=== PATIENT | female | born 1980 | race Caucasian/White ===

== ENCOUNTER 2020-03-28 21:41 | Emergency (ER) | payer MEDICARE, MEDICAID ==
[~2020-03-28] VITALS: Ht 160 cm; Wt 62.0 kg
[2020-03-28 23:15] LABS: BASOPHILS % 0.2 % (0.0-2.0); EOSINOPHILS % 0.7 % (0.0-5.0); HEMATOCRIT. 35.5 % (36.0-48.0); HEMOGLOBIN. 11.4 g/dL (12.0-16.0); LYMPHOCYTES % 7.9 % (20.0-50.0); MEAN CORPUSCULAR HEMOGLOBIN 25.8 pg (28.0-32.0); MEAN CORPUSCULAR VOLUME 80.4 fL (81.0-99.0); MONOCYTES % 6.7 % (2.0-8.0); NEUTROPHILS % 84.5 % (40.0-76.0); PLATELET 303 x1000/uL (130-400); RED BLOOD CELL COUNT 4.41 mill/uL (4.2-5.4); RED CELL DISTRIBUTION WIDTH 16.7 % (11.6-14.6)
[2020-03-28 23:20] LABS: CHLORIDE 107 mEq/L (98-107)
[2020-03-29] MEDS ORDERED: LORAZEPAM 0.5MG TABLET PO ONE
[2020-03-29 00:49] VITALS: BP 138/100
[2020-03-31] MEDS ORDERED: OXYM-15 NS (02:22)
[2020-03-31] MEDS ORDERED: METO-539 MT (02:28)
[2020-03-31] MEDS ORDERED: CLON-457 MT (02:28)
[2020-03-31] MEDS ORDERED: ALBU6.7H9 INH (02:28)
[2020-03-31] MEDS ORDERED: ASPI-1497 MT (02:28)
[2020-03-31] MEDS ORDERED: LOSA100T32 MT (02:28)
[2020-03-31] MEDS ORDERED: BACL20TA MT (02:28)
== END 2020-03-29 00:53 | disposition home or self-care (01) ==
LOC: ER 21:41
DX: N30.00 Acute cystitis without hematuria (principal); I10 Essential (primary) hypertension; B91 Sequelae of poliomyelitis; J45.909 Unspecified asthma, uncomplicated
CPT/HCPCS: 36415; 71045; 80053; 83605; 85025; 93005; 99285

== ENCOUNTER 2020-04-05 16:43 | Emergency (ER) | payer MEDICARE, MEDICAID ==
[~2020-04-05] VITALS: Ht 162.6 cm; Wt 68.0 kg
[~2020-04-05 16:43] MED LIST: ALBU6.7H9 INH; ASPI-1497 MT; BACL20TA MT; CLON-457 MT; LOSA100T32 MT; METO-539 MT; OXYM-15 NS
[2020-04-05] MEDS ORDERED: ONDANSETRON HCL 4MG/2ML INJ IV STA (17:28)
[2020-04-05] MEDS ORDERED: SODIUM CHLORIDE 0.9% 1,000 ML IV ONE (17:28)
[2020-04-05] MEDS ORDERED: MECLIZINE 25MG TABLET PO ONE (17:30)
[2020-04-05 17:31] LABS: BASOPHILS % 0.7 % (0.0-2.0); EOSINOPHILS % 6.3 % (0.0-5.0); HEMATOCRIT. 34.6 % (36.0-48.0); HEMOGLOBIN. 11.1 g/dL (12.0-16.0); LYMPHOCYTES % 20.9 % (20.0-50.0); MEAN CORPUSCULAR HEMOGLOBIN 25.9 pg (28.0-32.0); MEAN CORPUSCULAR VOLUME 80.8 fL (81.0-99.0); MEAN PLATELET VOLUME 8.9 fl (7.4-10.4); MONOCYTES % 9.6 % (2.0-8.0); NEUTROPHILS % 62.5 % (40.0-76.0); PLATELET 305 x1000/uL (130-400); RED BLOOD CELL COUNT 4.28 mill/uL (4.2-5.4); RED CELL DISTRIBUTION WIDTH 17.1 % (11.6-14.6)
[2020-04-05 17:34] LABS: INR 1.2; PROTHROMBIN TIME 12.7 sec (9.6-11.0)
[2020-04-05 17:35] LABS: CHLORIDE 106 mEq/L (98-107)
[2020-04-05 18:41] VITALS: BP 162/99
== END 2020-04-05 20:20 | disposition home or self-care (01) ==
LOC: ER 16:43
DX: R42 Dizziness and giddiness (principal); J45.909 Unspecified asthma, uncomplicated; I10 Essential (primary) hypertension; Z79.899 Other long term (current) drug therapy
CPT/HCPCS: 36415; 80053; 85025; 85610; 93005; 96361; 96374; 99284; J2405; J7030; J8597

== ENCOUNTER 2020-08-14 14:10 | Emergency (ER) | payer OTHER, MEDICAID ==
[~2020-08-14] VITALS: Ht 152.4 cm; Wt 62.0 kg
[2020-08-14] MEDS: TRAMADOL 50MG TABLET PO ONE (14:49)
[2020-08-14 18:11] VITALS: BP 119/77
== END 2020-08-14 18:34 | disposition home or self-care (01) ==
LOC: ER 14:40
DX: S09.8XXA Other specified injuries of head, initial encounter (principal); W05.0XXA Fall from non-moving wheelchair, initial encounter; Y93.89 Activity, other specified; Y92.89 Other specified places as the place of occurrence of the external cause; Y99.8 Other external cause status; J45.909 Unspecified asthma, uncomplicated; I10 Essential (primary) hypertension; Z79.899 Other long term (current) drug therapy
CPT/HCPCS: 99284

== ENCOUNTER 2022-05-25 18:07 | Inpatient (IN) | payer MEDICARE, MEDICAID ==
[~2022-05-25] VITALS: Ht 152.4 cm; Wt 61.7 kg
[2022-05-26 04:06] LABS: CHLORIDE 108 mEq/L (98-107)
[2022-05-26 04:08] LABS: HCG SCREEN NEGATIVE
[2022-05-26 05:04] LABS: BASOPHILS % 1.3 % (0.0-2.0); EOSINOPHILS % 4.9 % (0.0-5.0); HEMATOCRIT. 22.7 % (36.0-48.0); LYMPHOCYTES % 43.4 % (20.0-50.0); MEAN CORPUSCULAR HEMOGLOBIN 18.4 pg (28.0-32.0); MEAN PLATELET VOLUME 7.7 fl (7.4-10.4); MONOCYTES % 6.8 % (2.0-8.0); NEUTROPHILS % 43.6 % (40.0-76.0); PLATELET 651 x1000/uL (130-400); RED BLOOD CELL COUNT 3.49 mill/uL (4.2-5.4); RED CELL DISTRIBUTION WIDTH 18.3 % (11.6-14.6)
[2022-05-26 05:14] LABS: HEMOGLOBIN. 6.4 g/dL (12.0-16.0)
[2022-05-26 05:17] LABS: PLATELET ESTIMATE INCREASED
[2022-05-26 12:00] VITALS: BP 144/95
[2022-05-26 16:00] VITALS: BP 136/73
[2022-05-26] MEDS ORDERED: ONDANSETRON HCL 4MG/2ML INJ IV PRN (16:45)
[2022-05-26] MEDS ORDERED: ACETAMINOPHEN 325MG TABLET PO PRN (16:45)
[2022-05-26 18:46] VITALS: BP 144/95
[2022-05-26 20:00] VITALS: BP 129/89
[2022-05-26 20:18] LABS: HEMATOCRIT 33.1 % (36.0-48.0); HEMOGLOBIN 10.2 g/dL (12.0-16.0)
[2022-05-26 20:22] LABS: TOTAL IRON BINDING CAPACITY 549 ug/dL (250-450)
[2022-05-27] VITALS (7 sets, daily range): BP systolic 137–145; BP diastolic 88–104
[2022-05-27 08:05] LABS: BASOPHILS % 1.1 % (0.0-2.0); EOSINOPHILS % 1.8 % (0.0-5.0); HEMATOCRIT. 32.6 % (36.0-48.0); HEMOGLOBIN. 10.4 g/dL (12.0-16.0); LYMPHOCYTES % 25.5 % (20.0-50.0); MEAN CORPUSCULAR HEMOGLOBIN 22.4 pg (28.0-32.0); MEAN CORPUSCULAR VOLUME 70.4 fL (81.0-99.0); MEAN PLATELET VOLUME 7.7 fl (7.4-10.4); MONOCYTES % 10.4 % (2.0-8.0); NEUTROPHILS % 61.2 % (40.0-76.0); PLATELET 517 x1000/uL (130-400); RED BLOOD CELL COUNT 4.63 mill/uL (4.2-5.4); RED CELL DISTRIBUTION WIDTH 25.4 % (11.6-14.6)
[2022-05-27 08:11] LABS: CHLORIDE 106 mEq/L (98-107)
[2022-05-27 08:21] LABS: HAPTOGLOBIN 188 mg/dL (30-200)
[2022-05-27] MEDS: PANTOPRAZOLE SODIUM 40 MG/VIAL IV SCH (09:27)
[2022-05-27 19:22] LABS: INR 1.2
[2022-05-27] MEDS: IRON SUCROSE COMPLEX 100 MG/5 ML ML IV SCH (20:17)
[2022-05-28] MEDS ORDERED: DEXT 5%/0.9% NACL 1,000 ML IV ONE
[2022-05-28 03:59] LABS: BASOPHILS % 1.2 % (0.0-2.0); EOSINOPHILS % 1.9 % (0.0-5.0); HEMATOCRIT. 33.8 % (36.0-48.0); HEMOGLOBIN. 10.3 g/dL (12.0-16.0); LYMPHOCYTES % 19.9 % (20.0-50.0); MEAN CORPUSCULAR HEMOGLOBIN 21.8 pg (28.0-32.0); MEAN CORPUSCULAR VOLUME 71.2 fL (81.0-99.0); MEAN PLATELET VOLUME 7.4 fl (7.4-10.4); MONOCYTES % 10.7 % (2.0-8.0); NEUTROPHILS % 66.3 % (40.0-76.0); PLATELET 492 x1000/uL (130-400); RED BLOOD CELL COUNT 4.75 mill/uL (4.2-5.4); RED CELL DISTRIBUTION WIDTH 26.1 % (11.6-14.6)
[2022-05-28 04:00] VITALS: BP 142/89
[2022-05-28 04:02] LABS: CHLORIDE 108 mEq/L (98-107)
[2022-05-28 04:03] LABS: INR 1.2
[2022-05-28] MEDS ORDERED: SODIUM CHLORIDE 0.9% 500 ML IV ONE (06:00)
[2022-05-28] MEDS ORDERED: KCL 20MEQ/100ML PREMIX 100 ML IV NR (07:00)
[2022-05-28 08:00] VITALS: BP 114/69
[2022-05-28] MEDS: PANTOPRAZOLE SODIUM 40 MG/VIAL IV SCH (09:09)
[2022-05-28 12:00] VITALS: BP 142/95
[2022-05-28] MEDS: IRON SUCROSE COMPLEX 100 MG/5 ML ML IV SCH (13:25)
[2022-05-28] MEDS ORDERED: CEFTRIAXONE 1 G PREMIX 50 ML IV SCH (13:45)
[2022-05-28 16:00] VITALS: BP 144/108
[2022-05-28] MEDS: CEFTRIAXONE 1,000 MG in DEXTROSE 5% WATER 50 ML IV SCH (16:31)
[2022-05-28] MEDS ORDERED: IPRATROPIUM/ALBUTEROL 0.5-3(2.5)MG/3ML NEB HHN PRN (18:30)
[2022-05-28] MEDS ORDERED: BISACODYL 10MG SUPP PR PRN (18:30)
[2022-05-28] MEDS ORDERED: HYDROCODONE/ACETAMINOPHEN 5/325MG TABLET PO PRN (18:30)
[2022-05-28] MEDS ORDERED: NALOXONE HCL 0.4MG/ML VIAL IV PRN (18:45)
[2022-05-28 18:55] LABS: BG BASE EXCESS -1.2 mmol/L (-2.0-2.0); BG CARBOXYHEMOGLOBIN 0.9 % (0.5-1.5); BG DEOXYHEMOGLOBIN 2.3 % (0.0-5.0); BG FRACTION INSPIRED OXYGEN 21; BG HCO3 ACT 22.3 mmol/L (22.0-26.0); BG METHEMOGLOBIN 0.2 % (0.0-1.5); BG OXYGEN SATURATION 97.7 % (92.0-98.5); BG OXYHEMOGLOBIN 96.6 % (94.0-97.0); BG PCO2 33.3 mmHg (35.0-45.0); BG PH 7.443 (7.350-7.450); BG PO2 93.8 mmHg (75.0-100.0); BG SAMPLE SITE LEFT RADIAL; BG TOTAL HEMOGLOBIN 12.2 g/dL (12.0-18.0); BG VENT MODE ROOM AIR
[2022-05-28 19:17] LABS: CHLORIDE 107 mEq/L (98-107)
[2022-05-28 19:22] LABS: HCG SCREEN NEGATIVE
[2022-05-28 19:33] LABS: HDL CHOLESTEROL 64 mg/dL (40-59); LDL CHOLESTEROL 54 mg/dL (5-100); T4 FREE 1.47 ng/dL (0.76-1.46)
[2022-05-28 20:00] VITALS: BP 145/100
[2022-05-29] VITALS: BP 146/100
[2022-05-29 04:00] VITALS: BP 154/98
[2022-05-29] MEDS: PANTOPRAZOLE SODIUM 40 MG/VIAL IV SCH (07:49)
[2022-05-29 08:00] VITALS: BP 147/93
[2022-05-29 08:18] LABS: BASOPHILS % 1.2 % (0.0-2.0); HEMATOCRIT. 35.6 % (36.0-48.0); HEMOGLOBIN. 10.7 g/dL (12.0-16.0); LYMPHOCYTES % 20.1 % (20.0-50.0); MEAN CORPUSCULAR HEMOGLOBIN 21.8 pg (28.0-32.0); MEAN CORPUSCULAR VOLUME 72.5 fL (81.0-99.0); MONOCYTES % 8.8 % (2.0-8.0); NEUTROPHILS % 66.9 % (40.0-76.0); PLATELET 428 x1000/uL (130-400); RED BLOOD CELL COUNT 4.92 mill/uL (4.2-5.4)
[2022-05-29 08:59] LABS: CHLORIDE 107 mEq/L (98-107)
[2022-05-29] MEDS ORDERED: METOPROLOL TARTRATE 25MG TABLET PO NR ×2 (11:15→15:30)
[2022-05-29] MEDS ORDERED: SODIUM CHLORIDE 0.9% 250 ML IV ONE (11:30)
[2022-05-29 12:00] VITALS: BP 145/100
[2022-05-29] MEDS: CEFTRIAXONE 1,000 MG in DEXTROSE 5% WATER 50 ML IV SCH (15:28)
[2022-05-29] MEDS: IRON SUCROSE COMPLEX 100 MG/5 ML ML IV SCH (15:28)
[2022-05-29 16:00] VITALS: BP 132/101
[2022-05-29 20:00] VITALS: BP 142/96
[2022-05-29] MEDS: METOPROLOL TARTRATE 50MG TABLET PO SCH (20:23)
[2022-05-29] MEDS ORDERED: METOPROLOL TARTRATE 25MG TABLET PO SCH (21:00)
[2022-05-30] VITALS: BP 131/87
[2022-05-30 04:05] VITALS: BP 108/74
[2022-05-30 08:00] VITALS: BP 130/94
[2022-05-30 08:40] LABS: BASOPHILS % 1.3 % (0.0-2.0); CHLORIDE 108 mEq/L (98-107); HEMATOCRIT. 34.7 % (36.0-48.0); HEMOGLOBIN. 10.7 g/dL (12.0-16.0); MEAN CORPUSCULAR HEMOGLOBIN 22.7 pg (28.0-32.0); MEAN CORPUSCULAR VOLUME 73.8 fL (81.0-99.0); NEUTROPHILS % 63.7 % (40.0-76.0); PLATELET 344 x1000/uL (130-400); RED CELL DISTRIBUTION WIDTH 27.6 % (11.6-14.6)
[2022-05-30] MEDS: METOPROLOL TARTRATE 50MG TABLET PO SCH ×2 (09:07→21:03)
[2022-05-30] MEDS: PANTOPRAZOLE SODIUM 40 MG/VIAL IV SCH (09:07)
[2022-05-30 12:00] VITALS: BP 126/75
[2022-05-30 16:00] VITALS: BP 126/90
[2022-05-30] MEDS: CEFTRIAXONE 1,000 MG in DEXTROSE 5% WATER 50 ML IV SCH (16:01)
[2022-05-30] MEDS ORDERED: BISACODYL 5MG TABLET PO ONE (16:30)
[2022-05-30] MEDS ORDERED: METOCLOPRAMIDE HCL 10MG/2ML VIAL IV ONE (16:30)
[2022-05-30] MEDS ORDERED: SORBITOL 70% SOLN 30ML PO ONE (17:00)
[2022-05-30 20:48] VITALS: BP 129/72
[2022-05-31 00:19] VITALS: BP 130/82
[2022-05-31 04:00] VITALS: BP 143/100
[2022-05-31 06:40] LABS: INR 1.2; PROTHROMBIN TIME 12.6 sec (9.6-11.0)
[2022-05-31 06:41] LABS: EOSINOPHILS % 3.4 % (0.0-5.0); HEMATOCRIT. 33.4 % (36.0-48.0); LYMPHOCYTES % 23.9 % (20.0-50.0); MEAN CORPUSCULAR HEMOGLOBIN 22.9 pg (28.0-32.0); MEAN CORPUSCULAR VOLUME 76.4 fL (81.0-99.0); MONOCYTES % 8.3 % (2.0-8.0); NEUTROPHILS % 63.4 % (40.0-76.0); PLATELET 294 x1000/uL (130-400); RED BLOOD CELL COUNT 4.36 mill/uL (4.2-5.4)
[2022-05-31 07:01] LABS: CHLORIDE 105 mEq/L (98-107)
[2022-05-31] MEDS: PANTOPRAZOLE SODIUM 40 MG/VIAL IV SCH (09:14)
[2022-05-31 12:00] VITALS: BP 129/96
[2022-05-31] MEDS: CEFTRIAXONE 1,000 MG in DEXTROSE 5% WATER 50 ML IV SCH (14:04)
[2022-05-31] MEDS: METOPROLOL TARTRATE 50MG TABLET PO SCH ×2 (14:04→20:48)
[2022-05-31 16:00] VITALS: BP 153/94
[2022-05-31 17:10] LABS: CLARITY URINE CLEAR (CLEAR); COLOR URINE YELLOW (YELLOW); KETONES URINE 2+ (NEGATIVE); LEUKOCYTE ESTERASE URINE NEGATIVE (NEGATIVE); NITRITE URINE NEGATIVE (NEGATIVE); OCCULT BLOOD URINE NEGATIVE (NEGATIVE); PH URINE 6.5 (4.5-8.0); PROTEIN URINE NEGATIVE (NEGATIVE); SPECIFIC GRAVITY URINE 1.023 (1.005-1.030); UROBILINOGEN URINE 0.2 E.U./dL (0.2-1.0)
[2022-05-31 17:11] LABS: BASOPHILS % 0.8 % (0.0-2.0); EOSINOPHILS % 1.8 % (0.0-5.0); HEMATOCRIT. 36.3 % (36.0-48.0); HEMOGLOBIN. 10.9 g/dL (12.0-16.0); MEAN CORPUSCULAR VOLUME 76.4 fL (81.0-99.0); MEAN PLATELET VOLUME 8.6 fl (7.4-10.4); MONOCYTES % 9.9 % (2.0-8.0); NEUTROPHILS % 69.5 % (40.0-76.0); PLATELET 281 x1000/uL (130-400); RED BLOOD CELL COUNT 4.75 mill/uL (4.2-5.4)
[2022-05-31 20:00] VITALS: BP 136/95
[2022-05-31 22:04] LABS: PLATELET ESTIMATE NORMAL
[2022-06-01] VITALS: BP 90/56
[2022-06-01 04:00] VITALS: BP 114/83
[2022-06-01 07:24] LABS: BASOPHILS % 1.3 % (0.0-2.0); EOSINOPHILS % 3.7 % (0.0-5.0); HEMOGLOBIN. 10.7 g/dL (12.0-16.0); LYMPHOCYTES % 23.1 % (20.0-50.0); MEAN CORPUSCULAR HEMOGLOBIN 23.2 pg (28.0-32.0); MEAN CORPUSCULAR VOLUME 75.8 fL (81.0-99.0); MEAN PLATELET VOLUME 8.2 fl (7.4-10.4); MONOCYTES % 8.2 % (2.0-8.0); NEUTROPHILS % 63.7 % (40.0-76.0); PLATELET 254 x1000/uL (130-400); RED BLOOD CELL COUNT 4.62 mill/uL (4.2-5.4); RED CELL DISTRIBUTION WIDTH 28.8 % (11.6-14.6)
[2022-06-01 08:00] VITALS: BP 148/91
[2022-06-01 08:10] LABS: CANCER ANTIGEN 125 14.5 U/mL (0.0-38.1)
[2022-06-01] MEDS: METOPROLOL TARTRATE 50MG TABLET PO SCH ×2 (08:40→20:47)
[2022-06-01] MEDS: PANTOPRAZOLE SODIUM 40 MG/VIAL IV SCH (08:41)
[2022-06-01 09:20] LABS: CHLORIDE 106 mEq/L (98-107)
[2022-06-01 09:43] LABS: T4 FREE 1.48 ng/dL (0.76-1.46)
[2022-06-01 12:00] VITALS: BP 127/89
[2022-06-01] MEDS: CEFTRIAXONE 1,000 MG in DEXTROSE 5% WATER 50 ML IV SCH (15:04)
[2022-06-01 16:00] VITALS: BP 121/88
[2022-06-01] MEDS: BISACODYL 5MG TABLET PO SCH ×2 (16:30→20:47)
[2022-06-01] MEDS: METOCLOPRAMIDE HCL 10MG/2ML VIAL IV SCH ×2 (16:30→20:47)
[2022-06-01] MEDS: SORBITOL 70% SOLN 30ML PO SCH ×2 (16:31→20:47)
[2022-06-01] MEDS: SODIUM CHL 0.9% + KCL 20MEQ/L 1,000 ML IV SCH (16:43)
[2022-06-01 20:00] VITALS: BP 134/88
[2022-06-02] VITALS: BP 146/93
[2022-06-02] MEDS: SORBITOL 70% SOLN 30ML PO SCH ×2 (00:04→03:49)
[2022-06-02] MEDS: BISACODYL 5MG TABLET PO SCH ×2 (00:04→03:49)
[2022-06-02] MEDS: METOCLOPRAMIDE HCL 10MG/2ML VIAL IV SCH ×2 (00:04→03:55)
[2022-06-02 04:00] VITALS: BP 136/86
[2022-06-02] MEDS: SODIUM CHL 0.9% + KCL 20MEQ/L 1,000 ML IV SCH (05:33)
[2022-06-02 06:01] LABS: INR 1.2
[2022-06-02 06:19] LABS: BASOPHILS % 1.3 % (0.0-2.0); HEMATOCRIT. 37.1 % (36.0-48.0); HEMOGLOBIN. 11.3 g/dL (12.0-16.0); LYMPHOCYTES % 23.6 % (20.0-50.0); MEAN CORPUSCULAR HEMOGLOBIN 23.3 pg (28.0-32.0); MEAN CORPUSCULAR VOLUME 76.6 fL (81.0-99.0); MEAN PLATELET VOLUME 8.7 fl (7.4-10.4); NEUTROPHILS % 64.1 % (40.0-76.0); PLATELET 228 x1000/uL (130-400); RED BLOOD CELL COUNT 4.85 mill/uL (4.2-5.4)
[2022-06-02 06:26] LABS: CHLORIDE 111 mEq/L (98-107)
[2022-06-02 08:00] VITALS: BP 141/97
[2022-06-02] MEDS: PANTOPRAZOLE SODIUM 40 MG/VIAL IV SCH (09:10)
[2022-06-02] MEDS: METOPROLOL TARTRATE 50MG TABLET PO SCH (09:11)
[2022-06-02] MEDS ORDERED: SIMETHICONE 40 MG/0.6 ML 15ML ONE (10:51)
[2022-06-02] MEDS ORDERED: MIDAZOLAM HCL 5 MG/5 ML VIAL ONE (11:06)
[2022-06-02] MEDS ORDERED: FENTANYL CITRATE/PF 50MCG/ML 2ML VIAL ONE (11:06)
[2022-06-02] MEDS ORDERED: FENTANYL CITRATE/PF 50MCG/ML 2ML VIAL IV PRN (11:12)
[2022-06-02] MEDS ORDERED: MIDAZOLAM HCL 5 MG/5 ML VIAL IV PRN (11:15)
[2022-06-02] MEDS ORDERED: KCL 10MEQ/50ML PREMIX 50 ML IV NR (12:00)
[2022-06-02 13:00] VITALS: BP 132/91
[2022-06-02] MEDS ORDERED: FERR-63 PO (14:49)
[2022-06-02] MEDS ORDERED: OMEP20CA14 PO (14:49)
[2022-06-02] MEDS: CEFTRIAXONE 1,000 MG in DEXTROSE 5% WATER 50 ML IV SCH (15:01)
[2022-06-02 16:13] VITALS: BP 152/97
[2022-06-03] MEDS ORDERED: OMEPRAZOLE 20MG CAPSULE EXTENDED RELEASE PO SCH (07:40)
[2022-06-03] MEDS ORDERED: FERROUS SULFATE 325MG TABLET PO SCH (09:00)
== END 2022-06-02 17:40 | disposition home or self-care (01) | DRG 812 ==
LOC: ER 18:07 → 6EST 05-26 06:45 → ENRESERV 05-26 10:17 → 7WST 05-29 19:30
PROVIDERS: ADMIT Internal Medicine; ATTEND Internal Medicine
PROC: 30233N1 Transfusion of Nonautologous Red Blood Cells into Peripheral Vein, Percutaneous Approach (ICD-10-PCS; principal; 2022-05-26)
PROC: 0DB78ZX Excision of Stomach, Pylorus, Via Natural or Artificial Opening Endoscopic, Diagnostic (ICD-10-PCS; 2022-06-02)
PROC: 0DJD8ZZ Inspection of Lower Intestinal Tract, Via Natural or Artificial Opening Endoscopic (ICD-10-PCS; 2022-06-02)
DX: D50.9 Iron deficiency anemia, unspecified (principal); E87.2 Acidosis; I10 Essential (primary) hypertension; D75.839 Thrombocytosis, unspecified; J44.9 Chronic obstructive pulmonary disease, unspecified; D72.829 Elevated white blood cell count, unspecified; K29.60 Other gastritis without bleeding; K57.90 Diverticulosis of intestine, part unspecified, without perforation or abscess without bleeding; E87.6 Hypokalemia; Z20.822 Contact with and (suspected) exposure to COVID-19; Z74.01 Bed confinement status; Z99.3 Dependence on wheelchair; Z86.12 Personal history of poliomyelitis; Z86.61 Personal history of infections of the central nervous system; Z82.49 Family history of ischemic heart disease and other diseases of the circulatory system; R00.0 Tachycardia, unspecified; N63.20 Unspecified lump in the left breast, unspecified quadrant; D25.9 Leiomyoma of uterus, unspecified
CPT/HCPCS: 36415; 36600; 71045; 71250; 74176; 80048; 80053; 80061; 81003; 82270; 82375; 82728; 82805; 83010; 83540; 83550; 83615; 83735; 84145; 84439; 84443; 84481; 84703; 85014; 85018; 85025; 85044; 86300; 86304; 86850; 86880; 86900; 86920; 87426; 88305; 88312; 88313; 93005; 93306; 93970; 97162; 99285; C1893; C9113; J0696; J2250; J2765; J3010; J3480; J7060; P9016